=== PATIENT | male | born 2000 | race Caucasian/White ===

== ENCOUNTER 2020-10-25 11:22 | Emergency (ER) | payer OTHER ==
[~2020-10-25] VITALS: Ht 180.3 cm; Wt 117.9 kg
[2020-10-25] MEDS ORDERED: NORCO7.5 PO (12:59)
[2020-10-25 13:44] VITALS: BP 134/88
== END 2020-10-25 13:44 | disposition home or self-care (01) ==
LOC: ER 11:22
DX: M79.672 Pain in left foot (principal)